=== PATIENT | female | born 1975 | race Caucasian/White ===

== ENCOUNTER 2018-08-18 18:51 | Emergency (ER) | payer MEDICAID ==
[~2018-08-18] VITALS: Ht 172.7 cm; Wt 76.0 kg
[2018-08-18 20:27] LABS: CLARITY URINE CLEAR (CLEAR); COLOR URINE YELLOW (YELLOW); KETONES URINE NEGATIVE (NEGATIVE); LEUKOCYTE ESTERASE URINE NEGATIVE (NEGATIVE); NITRITE URINE NEGATIVE (NEGATIVE); OCCULT BLOOD URINE TRACE (NEGATIVE); PROTEIN URINE NEGATIVE (NEGATIVE); SPECIFIC GRAVITY URINE 1.023 (1.005-1.030); UROBILINOGEN URINE 0.2 E.U./dL (0.2-1.0)
[2018-08-18] MEDS ORDERED: SODIUM CHLORIDE 0.9% 1,000 ML IV ONE (23:10)
[2018-08-18] MEDS ORDERED: ONDANSETRON HCL 4MG/2ML INJ IV STA (23:10)
[2018-08-18] MEDS ORDERED: MORPHINE SULFATE 4 MG/ML CPJ (NOT FOR IM USE) IV STA (23:10)
[2018-08-18 23:21] LABS: CHLORIDE 105 mEq/L (98-107)
[2018-08-18 23:26] LABS: PARTIAL THROMBOPLASTIN TIME 29.9 sec (23.4-31.0); PROTHROMBIN TIME 10.7 sec (9.6-11.0)
[2018-08-18 23:27] LABS: BASOPHILS % 0.3 % (0.0-2.0); HEMATOCRIT. 41.6 % (36.0-48.0); HEMOGLOBIN. 13.8 g/dL (12.0-16.0); LYMPHOCYTES % 34.7 % (20.0-50.0); MEAN CORPUSCULAR HEMOGLOBIN 28.4 pg (28.0-32.0); MEAN CORPUSCULAR VOLUME 85.8 fL (81.0-99.0); MEAN PLATELET VOLUME 8.3 fl (7.4-10.4); MONOCYTES % 6.1 % (2.0-8.0); NEUTROPHILS % 57.9 % (40.0-76.0); PLATELET 321 x1000/uL (130-400); RED BLOOD CELL COUNT 4.84 mill/uL (4.2-5.4); RED CELL DISTRIBUTION WIDTH 13.4 % (11.6-14.6)
[2018-08-19 02:11] VITALS: BP 118/67
[2018-08-19] MEDS ORDERED: IOHEXOL-300 100 ML BOTTLE ONE (02:22)
== END 2018-08-19 02:11 | disposition home or self-care (01) ==
LOC: ER 18:51
DX: M25.512 Pain in left shoulder (principal); R10.9 Unspecified abdominal pain; R07.89 Other chest pain; Z98.890 Other specified postprocedural states; V43.52XA Car driver injured in collision with other type car in traffic accident, initial encounter; Y93.89 Activity, other specified; Y92.488 Other paved roadways as the place of occurrence of the external cause
CPT/HCPCS: 36415; 71045; 71260; 73030; 74177; 80053; 81003; 81025; 83690; 85025; 85610; 85730; 93005; 96374; 99284; J2270; J2405; J7030; Q9967; Z7610

== ENCOUNTER 2022-10-26 09:15 | Emergency (ER) | payer MEDICAID ==
[~2022-10-26] VITALS: Ht 152.4 cm; Wt 72.0 kg
[2022-10-26 09:21] VITALS: O2SAT 100
[2022-10-26 14:05] LABS: BASOPHILS % 0.5 % (0.0-2.0); EOSINOPHILS % 2.4 % (0.0-5.0); HEMATOCRIT. 37.5 % (36.0-48.0); HEMOGLOBIN. 12.8 g/dL (12.0-16.0); LYMPHOCYTES % 33.7 % (20.0-50.0); MEAN CORPUSCULAR VOLUME 78.8 fL (81.0-99.0); MEAN PLATELET VOLUME 7.9 fl (7.4-10.4); MONOCYTES % 8.3 % (2.0-8.0); NEUTROPHILS % 55.1 % (40.0-76.0); PLATELET 375 x1000/uL (130-400); RED BLOOD CELL COUNT 4.76 mill/uL (4.2-5.4); RED CELL DISTRIBUTION WIDTH 15.2 % (11.6-14.6)
[2022-10-26 14:08] LABS: CHLORIDE 104 mEq/L (98-107)
[2022-10-26 15:36] VITALS: BP 151/80; PULSE 63; RESP 19; TEMP 98.1
== END 2022-10-26 15:37 | disposition home or self-care (01) ==
LOC: ER 09:15
DX: R07.89 Other chest pain (principal); Z98.890 Other specified postprocedural states
CPT/HCPCS: 36415; 71045; 80053; 84484; 85025; 93005; 99285

== ENCOUNTER 2023-05-16 21:14 | Emergency (ER) | payer MEDICAID ==
[~2023-05-16] VITALS: Ht 152.4 cm; Wt 77.7 kg
[2023-05-16 21:40] VITALS: O2SAT 100
[2023-05-16 23:58] LABS: CLARITY URINE CLEAR (CLEAR); COLOR URINE YELLOW (YELLOW); GLUCOSE URINE NEGATIVE (NEGATIVE); KETONES URINE NEGATIVE (NEGATIVE); LEUKOCYTE ESTERASE URINE NEGATIVE (NEGATIVE); NITRITE URINE NEGATIVE (NEGATIVE); OCCULT BLOOD URINE NEGATIVE (NEGATIVE); PH URINE 6.5 (4.5-8.0); PROTEIN URINE NEGATIVE (NEGATIVE); SPECIFIC GRAVITY URINE 1.025 (1.005-1.030)
[2023-05-16] MEDS: HYDROCODONE/ACETAMINOPHEN 5/325MG TABLET PO ONE (23:58)
[2023-05-17 00:01] LABS: BASOPHILS % 1.2 % (0.0-2.0); DIFFERENTIAL COMMENT 0; EOSINOPHILS % 1.3 % (0.0-5.0); HEMATOCRIT. 38.6 % (36.0-48.0); HEMOGLOBIN. 12.6 g/dL (12.0-16.0); LYMPHOCYTES % 29.5 % (20.0-50.0); MEAN CORPUSCULAR HEMOGLOBIN 26.1 pg (28.0-32.0); MEAN CORPUSCULAR HGB CONC 32.7 g/dL (31.0-37.0); MEAN CORPUSCULAR VOLUME 79.8 fL (81.0-99.0); MEAN PLATELET VOLUME 7.9 fl (7.4-10.4); MONOCYTES % 6.7 % (2.0-8.0); NEUTROPHILS % 61.3 % (40.0-76.0); PLATELET 382 x1000/uL (130-400); RED BLOOD CELL COUNT 4.83 mill/uL (4.2-5.4); RED CELL DISTRIBUTION WIDTH 15.3 % (11.6-14.6); WHITE BLOOD COUNT 10.9 x1000/uL (4.5-11.0)
[2023-05-17 00:14] LABS: HCG SCREEN NEGATIVE
[2023-05-17 00:30] LABS: ALANINE AMINOTRANSFERASE < 7 IU/L (10-49); ALBUMIN 4.9 g/dL (3.2-4.8); ASPARTATE AMINOTRANSFERASE 19 IU/L (<34); BILIRUBIN TOTAL 0.4 mg/dL (0.1-1.0); CARBON DIOXIDE 24 mEq/L (21-32); CHLORIDE 102 mEq/L (98-107); CREATININE 0.7 mg/dL (0.6-1.0); GLUCOSE 102 mg/dL (70-105); POTASSIUM 3.7 mEq/L (3.5-5.1); PROTEIN TOTAL 8.3 g/dL (6.0-8.3); SODIUM 136 mEq/L (136-145); UREA NITROGEN BLOOD 12 mg/dL (9-23)
[2023-05-17 00:53] VITALS: BP 156/116
[2023-05-17] MEDS: KETOROLAC 60MG/2ML VIAL IM ONE (00:53)
[2023-05-17] MEDS ORDERED: VALA100044 MT (01:46)
[2023-05-17] MEDS ORDERED: IBUP-2028 MT (01:48)
[2023-05-17] MEDS ORDERED: LIDO700A15 TP (01:48)
[2023-05-17 01:58] VITALS: PULSE 95; RESP 14; TEMP 98.1
== END 2023-05-17 02:00 | disposition home or self-care (01) ==
LOC: ER 21:14
DX: R10.9 Unspecified abdominal pain (principal); B02.9 Zoster without complications; Z98.890 Other specified postprocedural states
CPT/HCPCS: 80053; 81003; 84703; 83690; 85025; 36415; 99285; 74176; 96372; J1885; Z7610

== ENCOUNTER 2024-01-27 09:09 | Emergency (ER) | payer MEDICAID ==
[~2024-01-27] VITALS: Ht 177.8 cm; Wt 164.0 kg
[~2024-01-27 09:09] MED LIST: IBUP-2028 MT; LIDO700A15 TP; VALA100044 MT
[2024-01-27 09:13] VITALS: BP 158/77; PULSE 81; RESP 18; TEMP 98.3; O2SAT 98
[2024-01-27] MEDS ORDERED: HYDROCODONE/ACETAMINOPHEN 5/325MG TABLET PO STA (10:42)
[2024-01-27] MEDS: HYDROCODONE/ACETAMINOPHEN 5/325MG TABLET PO NR (12:46)
[2024-01-27] MEDS: KETOROLAC 30MG/ML VIAL IM STA (12:52)
[2024-01-27] MEDS ORDERED: CYCL5TAB PO (12:59)
[2024-01-27] MEDS ORDERED: NAPR-681 PO (12:59)
== END 2024-01-27 14:49 | disposition home or self-care (01) ==
LOC: ER 09:20
DX: S00.03XA Contusion of scalp, initial encounter (principal); Z98.890 Other specified postprocedural states; W01.0XXA Fall on same level from slipping, tripping and stumbling without subsequent striking against object, initial encounter; Y93.89 Activity, other specified; Y92.89 Other specified places as the place of occurrence of the external cause; Y99.8 Other external cause status
CPT/HCPCS: 99285; 70450; 81025; 72100; 70486; 72125; 96372; J1885